=== PATIENT | male | born 1995 | race Caucasian/White ===

== ENCOUNTER 2022-11-26 07:21 | Day surgery (SDC) | payer OTHER ==
[~2022-11-26] VITALS: Ht 167.6 cm; Wt 68.0 kg
[2022-11-26] VITALS (211 sets, daily range): BP systolic 68–187; BP diastolic 34–149
[2022-11-26 08:32] LABS: ALBUMIN 4.7 g/dL (3.2-5.0); ALKALINE PHOSPHATASE 63 u/l (38-126); ANION GAP 11 (6-22 (CALC)); BILIRUBIN, TOTAL 1.2 mg/dL (0.2-1.3); BUN 12 mg/dL (9-20); BUN/CREATININE RATIO 12 (12-20 (CALC)); CARBON DIOXIDE 31 mmol/l (22-30); CHLORIDE 99 mmol/l (95-108); GFR FOR AFR.AMER. > 60 ML/MIN (>=60 (CALC)); GFR OTHER RACES > 60 ML/MIN (>=60 (CALC)); POTASSIUM 2.9 mmol/l (3.5-5.1); SGOT/AST 28 u/l (17-59); SODIUM 139 mmol/l (137-146)
[2022-11-26 08:42] LABS: BASO% 0.6 % (0-3); EOS% 0.9 % (0-8); HEMATOCRIT 37.9 % (39.0-50.0); HEMOGLOBIN 11.7 g/dl (14.0-18.0); IMMATURE GRANULOCYTES 0.1 % (0.0-5.0); MEAN CELL VOLUME 61.9 fL CALC (80.0-100.0); MEAN CORPUSCULAR HGB 19.1 pG CALC (26.0-32.0); MEAN CORPUSCULAR HGB CONC 30.9 g/dL CAL (32.0-36.0); MONO% 5.7 % (2-13); NEUT# 5.34 thou/uL (1.82-7.42); NEUT% 61.7 % (42-76); RED BLOOD COUNT 6.12 mill/uL (4.70-6.10); RED CELL DISTRI WIDTH 18.9 % (11.5-15.5)
[2022-11-26] MEDS ORDERED: KLONOPIN1 MG PO (08:46)
[2022-11-26] MEDS ORDERED: NALTREXONE50 MG PO (17:59)
[2022-11-26] MEDS ORDERED: CLONIDINE0.1 MG PO (18:00)
[2022-11-27 00:26] VITALS: BP 83/55
[2022-11-27 00:33] VITALS: BP 90/62
[2022-11-27 03:43] VITALS: BP 88/45
[2022-11-27 05:29] LABS: BASO% 0.2 % (0-3); HEMATOCRIT 34.2 % (39.0-50.0); HEMOGLOBIN 10.4 g/dl (14.0-18.0); IMMATURE GRANULOCYTES 0.2 % (0.0-5.0); LYMPH% 12.6 % (15-41); MEAN CELL VOLUME 63.2 fL CALC (80.0-100.0); MEAN CORPUSCULAR HGB 19.2 pG CALC (26.0-32.0); MEAN CORPUSCULAR HGB CONC 30.4 g/dL CAL (32.0-36.0); MONO% 1.8 % (2-13); NEUT# 8.73 thou/uL (1.82-7.42); NEUT% 85.2 % (42-76); RED BLOOD COUNT 5.41 mill/uL (4.70-6.10); RED CELL DISTRI WIDTH 18.7 % (11.5-15.5)
[2022-11-27 05:50] LABS: ALKALINE PHOSPHATASE 48 u/l (38-126); BILIRUBIN, TOTAL 0.9 mg/dL (0.2-1.3); BUN 7 mg/dL (9-20); BUN/CREATININE RATIO 8 (12-20 (CALC)); CARBON DIOXIDE 29 mmol/l (22-30); CHLORIDE 104 mmol/l (95-108); CREATININE 0.9 mg/dL (0.7-1.3); GFR FOR AFR.AMER. > 60 ML/MIN (>=60 (CALC)); GFR OTHER RACES > 60 ML/MIN (>=60 (CALC)); MAGNESIUM 2.5 mg/dL (1.6-2.3); SGOT/AST 23 u/l (17-59); SODIUM 140 mmol/l (137-146)
[2022-11-27 06:12] LABS: ALBUMIN 3.7 g/dL (3.2-5.0); ANION GAP 12 (6-22 (CALC)); POTASSIUM 5.2 mmol/l (3.5-5.1); TOTAL PROTEIN 6.2 g/dL (6.3-8.2)
[2022-11-27 07:15] VITALS: BP 96/58
[2022-11-27 08:17] VITALS: BP 96/58
== END 2022-11-27 13:33 | disposition home or self-care (01) | DRG 897 ==
LOC: MS2 07:21 → ANR 07:21
PROVIDERS: ATTEND Anesthesiology
DX: F11.20 Opioid dependence, uncomplicated (principal)
CPT/HCPCS: J0131; J2354; J3475